=== PATIENT | female | born 1965 | race Caucasian/White ===

== ENCOUNTER 2018-08-08 02:25 | Emergency (ER) | payer OTHER ==
[2018-08-08 02:36] VITALS: BP 115/74; PULSE 92; RESP 18; TEMP 98.4; O2SAT 100
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
== END 2018-08-08 03:11 | disposition home or self-care (01) ==
LOC: H.ER 02:25
DX: S00.83XA Contusion of other part of head, initial encounter (principal); Y04.0XXA Assault by unarmed brawl or fight, initial encounter; Y99.0 Civilian activity done for income or pay; E78.00 Pure hypercholesterolemia, unspecified; I10 Essential (primary) hypertension